=== PATIENT | male | born 1980 | race Caucasian/White ===

== ENCOUNTER 2017-09-28 18:05 | Emergency (ER) | payer OTHER ==
[2017-09-28] MEDS: ACETAMINOPHEN 325 MG TAB PO (22:29)
[2017-09-28] MEDS: KETOROLAC 60 MG INJ IM (22:30)
== END 2017-09-28 22:38 | disposition home or self-care (01) ==
LOC: FTE 18:05
DX: J20.9 Acute bronchitis, unspecified (principal)
CPT/HCPCS: 96372; 99284-25; J1885